=== PATIENT | female | born 1970 | race Caucasian/White ===

== ENCOUNTER 2016-06-14 12:54 | Inpatient (IN) | payer MEDICAID, OTHER ==
[~2016-06-14] VITALS: Ht 157.5 cm; Wt 72.7 kg
[~2016-06-14 12:54] MED LIST: CALC0.5C6 PO; CITRTAB7 PO; D3 U5000 PO; LEVO.125 PO; MAGN400C2 PO
[2016-06-14 12:55] VITALS: BP 178/117; PULSE 96; RESP 20; TEMP 97.8; O2SAT 97
--- NOTE | 2016-06-14 15:43 | PD ---
HPI Chief Complaint: Abnormal Results Time Seen by Provider: 15:43 Travel History International Travel<30 days: No Contact w/Intl Traveler<30days: No Traveled to known affect area: No History of Present Illness HPI 45-year-old female with history of hypocalcemia in the past, thyroidectomy in 2011, presents to emergency department today for evaluation of possible hypocalcemia. Patient states that she has had diarrhea since yesterday. She has been "tingling from her head to her toes"with muscle spasms. Patient states that this has happened to her in the past. She has been taking her calcium supplements daily but things after heard since the diarrhea that it has gone too low. Denies a chest tightness. No difficulty breathing. No hematemesis or medicated. No urinary symptoms. No other symptoms to report. PFSH Past Medical History Hx Anticoagulant Therapy: No Asthma: No Autoimmune Disease: No Blood Disorders: No Anxiety: No Depression: No Heart Rhythm Problems: No Cancer: Yes (thyroid) Cardiovascular Problems: No High Cholesterol: No Chemotherapy: Yes Chest Pain: Yes (tight chest) Congestive Heart Failure: No COPD: No Cerebrovascular Accident: No Diabetes: No Diminished Hearing: No Endocrine: Yes Genitourinary: No Headaches: Yes Immune Disorder: No Implanted Vascular Access Dvce: Yes Insomnia: Yes Musculoskeletal: Yes (BILATERAL HIP PAIN, MOSTLY THE LEFT HIP) Neurologic: Yes Psychiatric: No Reproductive: No Respiratory: No Immunizations Current: Yes Migraines: No Radiation Therapy: Yes Seizures: No Sleep Apnea: No Thyroid Disease: Yes (THYROID CA AND GOITER) PNEUMOCCOCAL Vaccine (Year): 1 ?: Not : 3 Para: 3 Miscarriage: 0 : 0 Tubal Ligation: Yes Past Surgical History Abdominal Surgery: No Cardiac Surgery: No Endocrine Surgery: Yes (THYROIDECTOMY 2011) Eye Surgery: No Gynecologic Surgery: Yes Hysterectomy: No Oral Surgery: Yes (TEETH REMOVED) Pacemaker: No Thoracic Surgery: No Other Surgery: Yes (HEMMOROIDECTOMY) Social History Alcohol Use: No Tobacco Use: Yes (2 PPD) Substance Use: No Allergies-Medications (Allergen,Severity, Reaction): Coded Allergies: Proton Pump Inhibitors (Verified Allergy, Severe, 06/14/16) Interferes with calcium absorption. AVOID PPIs in this patient Sulfa (Verified Allergy, Severe, hives, 06/14/16) Zemplar (Verified Allergy, Severe, Rash, 06/14/16) RASH ALL OVER FACE Calcitriol (Verified Adverse Reaction, Intermediate, Diarrhea, 06/14/16) reaction is dose related, occuring at full dose, not present on low dose. Reported Meds & Prescriptions Reported Meds & Active Scripts Active Reported Synthroid (Levothyroxine Sodium) 125 Mcg Tab 125 Mcg PO DAILY Citracal + D3 Maximum (Calcium Citrate-Vitamin D) 315-250 Mg-Unit Tab 1 Tab PO BID D3 Ultra Strength (Cholecalciferol) 5,000 Unit Cap 5,000 Units PO DAILY Calcitriol 0.5 Mcg Cap 0.5 Mcg PO BID Review of Systems Except as stated in HPI: all other systems reviewed are Neg Physical Exam Narrative GENERAL: Well-nourished female patient, lying in bed in no acute distress SKIN: Warm and dry. HEAD: Atraumatic. Normocephalic. EYES: Pupils equal and round. No scleral icterus. No injection or drainage. ENT: No nasal bleeding or discharge. Mucous membranes pink and moist. NECK: Trachea midline. No JVD. CARDIOVASCULAR: Regular rate and rhythm. No murmur appreciated. RESPIRATORY: No accessory muscle use. Clear to auscultation. Breath sounds equal bilaterally. GASTROINTESTINAL: Abdomen soft, non-tender, nondistended. Hepatic and splenic margins not palpable. MUSCULOSKELETAL: No obvious deformities. No clubbing. No cyanosis. No edema. NEUROLOGICAL: Awake and alert. No obvious cranial nerve deficits. Motor grossly within normal limits. Normal speech. PSYCHIATRIC: Appropriate mood and affect; insight and judgment normal. Data Data Last Documented VS Vital Signs Date Time Temp Pulse Resp B/P Pulse Ox O2 Delivery O2 Flow Rate FiO2 06/14/16 15:49 18 96 Room Air 06/14/16 15:44 75 06/14/16 12:55 97.8 178/117 Orders Complete Blood Count With Diff (06/14/16 15:44) Comprehensive Metabolic Panel (06/14/16 15:44) Iv Access Insert/Monitor (06/14/16 15:44) Ecg Monitoring (06/14/16 15:44) Oximetry (06/14/16 15:44) Sodium Chloride 0.9% Flush (Ns Flush) (06/14/16 15:45) Electrocardiogram (06/14/16 ) Calcium Chloride Inj (Calcium Chloride I (06/14/16 17:00) Calcium Carbonate Chew (Tums Chew) (06/14/16 17:00) Admit Order (Ed Use Only) (06/14/16 17:49) Labs Laboratory Tests Test 06/14/16 15:55 White Blood Count 11.2 TH/MM3 Red Blood Count 4.81 MIL/MM3 Hemoglobin 14.7 GM/DL Hematocrit 43.6 % Mean Corpuscular Volume 90.5 FL Mean Corpuscular Hemoglobin 30.6 PG Mean Corpuscular Hemoglobin 33.8 % Concent Red Cell Distribution Width 13.0 % Platelet Count 265 TH/MM3 Mean Platelet Volume 10.3 FL Neutrophils (%) (Auto) 63.4 % Lymphocytes (%) (Auto) 29.4 % Monocytes (%) (Auto) 5.6 % Eosinophils (%) (Auto) 0.9 % Basophils (%) (Auto) 0.7 % Neutrophils # (Auto) 7.1 TH/MM3 Lymphocytes # (Auto) 3.3 TH/MM3 Monocytes # (Auto) 0.6 TH/MM3 Eosinophils # (Auto) 0.1 TH/MM3 Basophils # (Auto) 0.1 TH/MM3 CBC Comment DIFF FINAL Differential Comment Sodium Level 141 MEQ/L Potassium Level 3.7 MEQ/L Chloride Level 105 MEQ/L Carbon Dioxide Level 27.8 MEQ/L Anion Gap 8 MEQ/L Blood Urea Nitrogen 9 MG/DL Creatinine 1.01 MG/DL Estimat Glomerular Filtration 59 ML/MIN Rate Random Glucose 106 MG/DL Calcium Level 5.5 MG/DL Protein Corrected Calcium 5.5 MG/DL Total Bilirubin 0.3 MG/DL Aspartate Amino Transf 23 U/L (AST/SGOT) Alanine Aminotransferase 19 U/L (ALT/SGPT) Alkaline Phosphatase 54 U/L Total Protein 7.2 GM/DL Albumin 3.9 GM/DL MDM Medical Decision Making Medical Screen Exam Complete: Yes Emergency Medical Condition: Yes Medical Record Reviewed: Yes Differential Diagnosis Electrolyte abnormality versus gastroenteritis versus colitis Narrative Course 45 year-old female presents to the emergency department for evaluation. Patient appears without distress. She is slightly tachycardic initially but normalizes after being in the room. CBC is without acute concern. CMP is with protein corrected calcium of 5.5. Patient is given 1 g calcium gluconate and 500 mg calcium carbonate chew. I discussed the patient with my attending physician Dr. Michelle. Patient will be admitted observation to the resident service. Diagnosis Primary Impression: Hypocalcemia Admitting Information Admitting Physician Requests: Observation Condition: Stable Mary Lou Ruvalcaba Jun 14, 2016 15:43
[2016-06-14] MEDS ORDERED: SODIUM CHLORIDE 0.9% FLUSH 10 ML FLUSH IV FLUSH PRN (15:45)
[2016-06-14 15:49] VITALS: RESP 18; O2SAT 96
[2016-06-14 16:22] LABS: AUTOMATED NEUTROPHIL # 7.1 TH/MM3 (1.8-7.7); BASOPHIL # 0.1 TH/MM3 (0-0.2); BASOPHIL % 0.7 % (0.0-2.0); EOSINOPHIL # 0.1 TH/MM3 (0-0.4); EOSINOPHIL % 0.9 % (0.0-4.0); HEMATOCRIT 43.6 % (35.0-46.0); HEMO FLAGS DIFF FINAL; LYMPH % 29.4 % (9.0-44.0); LYMPHOCYTE # 3.3 TH/MM3 (1.0-4.8); MEAN CELL VOLUME 90.5 FL (80.0-100.0); MEAN CORPUSCULAR HEMOGLOBIN 30.6 PG (27.0-34.0); MEAN CORPUSCULAR HGB CONC 33.8 % (32.0-36.0); MONO % 5.6 % (0.0-8.0); NEUT % 63.4 % (16.0-70.0); PLATELET COUNT 265 TH/MM3 (150-450); RED BLOOD COUNT 4.81 MIL/MM3 (4.00-5.30); WHITE BLOOD COUNT 11.2 TH/MM3 (4.0-11.0)
[2016-06-14 16:46] LABS: BICARBONATE 27.8 MEQ/L (21.0-32.0); TOTAL BILIRUBIN ADULT 0.3 MG/DL (0.2-1.0)
[2016-06-14 16:48] LABS: POTASSIUM 3.7 MEQ/L (3.5-5.1)
[2016-06-14 16:51] LABS: CALCIUM-PROTEIN CORRECTED 5.5 MG/DL (8.5-10.1)
[2016-06-14] MEDS ORDERED: CALCIUM CHLORIDE 10% SOLN 1 GRAM/10 ML SYR IV PUSH ONE (17:00)
[2016-06-14] MEDS ORDERED: CALCIUM CARBONATE 500 MG CHEWABLE TAB CHEW ONE (17:00)
--- NOTE | 2016-06-14 17:53 | HHI.HP ---
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 Parathyroid glands were not removed per report but patient has had hypoparathyroidism since her thyroidectomy. Today she reports "tetany". She has "drawing up" of her muscles including her throat since yesterday morning. She is tingling from head to toe, "hands and feet feel asleep" and the feeling is constant. The symptoms come and go, no worse today than yesterday. She knew her calcium must have been low due to her symptomatology and decided to come in. At home she takes twelve 600mg tablets of calcium daily. Last time in hospital was in January 2016; she was given IV calcium 1g and 500mg PO calcium (as well as home medications) and was discharged next day. She reports decreased adherence with her home medications, noting she has only taken her calcium with vitD along with magnesium. Ran out of synthroid one week ago. She denies shortness of breath, chest pain, dysphagia. She does have numbness of her fingers and toes bilaterally and facial twitches left worse than right. (Mariajose Carbajal MD R1) Review of Systems Constitutional: DENIES: Fever, Chills, Change in appetite Endocrine: DENIES: Abnorml menstrual pattern, Polydipsia, Polyuria Eyes: DENIES: Blurred vision, Vision loss Ears, nose, mouth, throat: COMPLAINS OF: Tinnitus ("a little bit" on right), DENIES: Vertigo Respiratory: DENIES: Cough, Wheezing, Shortness of breath Cardiovascular: DENIES: Chest pain, Palpitations Gastrointestinal: DENIES: Abdominal pain, Black stools, Bloody stools, Constipation, Diarrhea, Nausea, Vomiting Genitourinary: DENIES: Dysuria Musculoskeletal: COMPLAINS OF: Joint pain (hip, chronic) Neurologic: COMPLAINS OF: Paresthesias, DENIES: Abnormal gait, Headache, Seizures, Tremor, Poor Balance Psychiatric: DENIES: Anxiety, Depression (Mariajose Carbajal MD R1) Past Family Social History Past Medical History History of goiter (?cancer) Hypothyroidism Hypoparathyroidism Past Surgical History Thyroidectomy Hemorrhoidectomy Bilateral tubal ligation Reported Medications Reported Meds & Active Scripts Active Reported Synthroid (Levothyroxine Sodium) 125 Mcg Tab 125 Mcg PO DAILY Citracal + D3 Maximum (Calcium Citrate-Vitamin D) 315-250 Mg-Unit Tab 1 Tab PO BID D3 Ultra Strength (Cholecalciferol) 5,000 Unit Cap 5,000 Units PO DAILY Calcitriol 0.5 Mcg Cap 0.5 Mcg PO BID (Mariajose Carbajal MD R1) Allergies: Coded Allergies: Proton Pump Inhibitors (Verified Allergy, Severe, 06/14/16) Interferes with calcium absorption. AVOID PPIs in this patient Sulfa (Verified Allergy, Severe, hives, 06/14/16) Zemplar (Verified Allergy, Severe, Rash, 06/14/16) RASH ALL OVER FACE Calcitriol (Verified Adverse Reaction, Intermediate, Diarrhea, 06/14/16) reaction is dose related, occuring at full dose, not present on low dose. Active Ordered Medications Inpatient Medications Calcitriol (Rocaltrol) 0.5 mcg BID PO ; Start 06/14/16 at 21:00 Calcium Carbonate 500 mg 500 mg ONCE ONCE CHEW ; Start 06/14/16 at 17:00; Stop 06/14/16 at 17:01; Status DC Calcium Chloride (Calcium Chloride Inj) 1 gm ONCE ONCE IV PUSH ; Start at 17:00; Stop 06/14/16 at 17:56; Status DC Calcium Gluconate/ Dextrose (Calcium Gluconate Inj/D5W 100 ml Inj) 110 ml @ 110 mls/hr ONCE ONCE IV Last administered on 06/14/16t 18:03; Start 06/14/16 at 18:00; Stop 06/14/16 at 18:59 Calcium/Vitamin D 500 mg 500 mg BID PO CA; Start 06/14/16 at 21:00 Cholecalciferol (Vitamin D3) 5,000 units DAILY PO ; Start 06/15/16 at 09:00 Enoxaparin Sodium (Lovenox Inj) 40 mg Q24H SQ ; Start 06/14/16 at 20:00 Levothyroxine Sodium (Synthroid) 125 mcg DAILY@06 PO ; Start 06/14/16 at 18:00 Naloxone HCl (Narcan Inj) 0.4 mg UNSCH PRN IV SEE LABEL COMMENTS; Start at 18:30 Sodium Chloride (NS 1000 ml Inj) 1,000 ml @ 100 mls/hr Q10H IV ; Start at 18:19 Sodium Chloride (NS Flush) 2 ml UNSCH PRN IV FLUSH FLUSH AFTER USING IV ACCESS ; Start 06/14/16 at 15:45 Temazepam (Restoril) 15 mg HS PRN PO INSOMNIA; Start 06/14/16 at 18:30 Family History Mom when she was a baby from thyroid cancer Dad with hypertension Social History Cigarette: 1/2 ppd x one year, 1 ppd for 6 years Alcohol: None Illicit: Denies 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 (Mariajose Carbajal MD R1) Physical Exam Vital Signs Vital Signs Date Time Temp Pulse Resp B/P Pulse Ox O2 Delivery O2 Flow Rate FiO2 06/14/16 15:49 18 96 Room Air 06/14/16 15:44 75 18 96 Room Air 06/14/16 12:55 97.8 96 20 178/117 97 Room Air Physical Exam GENERAL: This is a well-nourished, well-developed female in no apparent distress. Daughter at bedside. ENDO: Chvostek's sign positive L>R, Trousseau sign negative, no thyroid masses noted SKIN: No rashes, ecchymoses or lesions. HEAD: Atraumatic. Normocephalic. No temporal or scalp tenderness. EYES: Pupils equal round and reactive. Extraocular motions intact. No scleral icterus. No injection or drainage. ENT: Nose without bleeding, purulent drainage or septal hematoma. Throat without erythema, tonsillar hypertrophy or exudate. NECK: Trachea midline. No JVD or lymphadenopathy. Supple, nontender, no meningeal signs. CARDIOVASCULAR: Regular rate and rhythm without murmurs, gallops, or rubs. RESPIRATORY: Clear to auscultation. Breath sounds equal bilaterally. No wheezes , rales, or rhonchi. GASTROINTESTINAL: Abdomen soft, non-tender, nondistended. No hepato-splenomegaly , or palpable masses. MUSCULOSKELETAL: Mild resistance on passive ROM of UE and LE. Extremities without clubbing, cyanosis, or edema. No joint tenderness, effusion, or edema noted. No calf tenderness. NEUROLOGICAL: Awake and alert. Cranial nerves II through XII intact. Motor and sensory grossly within normal limits. Five out of 5 muscle strength in all muscle groups. Normal speech. Laboratory Laboratory Tests Test 06/14/16 15:55 White Blood Count 11.2 Red Blood Count 4.81 Hemoglobin 14.7 Hematocrit 43.6 Mean Corpuscular Volume 90.5 Mean Corpuscular Hemoglobin 30.6 Mean Corpuscular Hemoglobin 33.8 Concent Red Cell Distribution Width 13.0 Platelet Count 265 Mean Platelet Volume 10.3 Neutrophils (%) (Auto) 63.4 Lymphocytes (%) (Auto) 29.4 Monocytes (%) (Auto) 5.6 Eosinophils (%) (Auto) 0.9 Basophils (%) (Auto) 0.7 Neutrophils # (Auto) 7.1 Lymphocytes # (Auto) 3.3 Monocytes # (Auto) 0.6 Eosinophils # (Auto) 0.1 Basophils # (Auto) 0.1 CBC Comment DIFF FINAL Differential Comment Sodium Level 141 Potassium Level 3.7 Chloride Level 105 Carbon Dioxide Level 27.8 Anion Gap 8 Blood Urea Nitrogen 9 Creatinine 1.01 Estimat Glomerular Filtration 59 Rate Random Glucose 106 Calcium Level 5.5 Protein Corrected Calcium 5.5 Total Bilirubin 0.3 Aspartate Amino Transf 23 (AST/SGOT) Alanine Aminotransferase 19 (ALT/SGPT) Alkaline Phosphatase 54 Total Protein 7.2 Albumin 3.9 (Mariajose Carbajal MD R1) Result Diagram: 06/14/16 1555 06/14/16 1555 Assessment and Plan Assessment and Plan 45 year old female with chronic hypocalcemia related to thyroidectomy/ hypoparathyroidism presents with symptoms strongly suggestive of hypocalcemia. She is admitted for further work-up and correction of electrolyte abnormality. Code Status DNR - discussed with patient in detail with daughter at bedside; declines chest compressions, intubation, shock, or medications if her heart were to stop functioning or if she were to require respiratory support Discussed Condition With SDW Dr. Kurtis Ramirez (Mariajose Carbajal MD R1) Attending Attestation THIS CASE WAS DISCUSSED WITH THE RESIDENT PHYSICIANS. I HAVE REVIEWED THE RECORD AND AGREE WITH THE ABOVE NOTE AND PLAN OF CARE WAS DISCUSSED. I HAVE AUTHORIZED THE ORDER FOR ADMISSION TO AN IN-PATIENT STATUS. (Yohan Palmer MD) Problem List: (1) Hypocalcemia Status: Acute Plan: Chronic exacerbation. [place] reported and patient has positive checkoff sign. Calcium is 5.5, corrected. She is status post calcium carbonate 500 mg and 1 g IV calcium -EKG notable for QT prolongation of 490, no evidence of prolonged QRS or ischemic changes -Troponin ordered, is normal -Trend calcium at 10pm and in AM -Trend EKG -Check TSH, vit D, PTH, phosphate, Mg (2) Hypothyroidism Status: Chronic Plan: Patient has not taken her home dose Synthroid for one week. Restart as inpatient. TSH pending. -manager in training to assess with PCP establishing (3) Hypoparathyroidism Status: Chronic Plan: Related to thyroidectomy in approximately 2010. Adherence to medical management is questionable. -Management as above (4) Fluids/Electrolytes/Nutrition/Prophylaxis Status: Acute Plan: Fluids: NS @ 100ml/hr Electrolytes: monitor and replete as needed, HypoCa2+ Nutrition: regular diet DVT Prophylaxis: Lovenox 40mg subQ q24hr GI Prophylaxis: PPI not indicated, would reduce absorption of calcium (Mariajose Carbajal MD R1) Mariajose Carbajal MD R1 Jun 14, 2016 17:53 Yohan Palmer MD Jun 15, 2016 12:10
[2016-06-14] MEDS ORDERED: CALCIUM GLUCONATE INJ 1 GM in DEXTROSE 5% IN WATER 100ML INJ 100 ML IV ONE ×2 (18:00)
[2016-06-14] MEDS ORDERED: NALOXONE HCL 0.4 MG/ML AMP IV PRN (18:30)
[2016-06-14 19:07] VITALS: BP 126/61; PULSE 75; RESP 18; O2SAT 95
[2016-06-14] MEDS ORDERED: ENALAPRILAT 1.25 MG/ML VIAL IV PRN (19:30)
[2016-06-14] MEDS: LEVOTHYROXINE SODIUM 125 MCG TAB PO SCH (19:35)
[2016-06-14] MEDS: SODIUM CHLOR 0.9% 1000 ML INJ 1,000 ML IV SCH (19:35)
[2016-06-14 19:39] VITALS: BP 126/61; PULSE 71; RESP 18; O2SAT 99
[2016-06-14] MEDS: ENOXAPARIN SODIUM 40 MG/0.4 ML SYRINGE SQ SCH (20:00)
[2016-06-14 21:35] VITALS: BP 143/60; PULSE 62; RESP 18; TEMP 98.3; O2SAT 94
[2016-06-14] MEDS: CALCITRIOL 0.25 MCG CAP PO SCH (22:08)
[2016-06-14] MEDS: CALCIUM/VITAMIN D 250 MG/125 U TAB PO SCH (22:08)
[2016-06-15] MEDS: TEMAZEPAM 15 MG CAP PO PRN ×2 (00:20→23:52)
[2016-06-15 02:14] LABS: CALCIUM-PROTEIN CORRECTED 6.2 MG/DL (8.5-10.1)
[2016-06-15] MEDS ORDERED: CALCIUM GLUCONATE INJ 1 GM in SODIUM CHLORIDE 0.9% INJ 100 ML IV ONE ×3 (03:15→18:00)
[2016-06-15] MEDS: SODIUM CHLOR 0.9% 1000 ML INJ 1,000 ML IV SCH (04:19)
[2016-06-15 04:23] VITALS: BP 130/60; PULSE 65; RESP 18; TEMP 97.8; O2SAT 95
[2016-06-15] MEDS: LEVOTHYROXINE SODIUM 125 MCG TAB PO SCH (05:49)
[2016-06-15 08:00] VITALS: BP 104/51; PULSE 52; PULSE 53; RESP 18; TEMP 97.6; O2SAT 94
[2016-06-15 08:04] LABS: BASOPHIL % 0.5 % (0.0-2.0); EOSINOPHIL # 0.1 TH/MM3 (0-0.4); EOSINOPHIL % 1.5 % (0.0-4.0); HEMATOCRIT 40.8 % (35.0-46.0); HEMO FLAGS DIFF FINAL; LYMPH % 38.7 % (9.0-44.0); LYMPHOCYTE # 3.1 TH/MM3 (1.0-4.8); MEAN CELL VOLUME 90.9 FL (80.0-100.0); MEAN CORPUSCULAR HEMOGLOBIN 31.2 PG (27.0-34.0); MEAN CORPUSCULAR HGB CONC 34.4 % (32.0-36.0); MONO % 9.1 % (0.0-8.0); NEUT % 50.2 % (16.0-70.0); PLATELET COUNT 229 TH/MM3 (150-450); RED BLOOD COUNT 4.49 MIL/MM3 (4.00-5.30); RED CELL DISTRIBUTION WIDTH 12.9 % (11.6-17.2)
[2016-06-15 08:12] LABS: POTASSIUM 3.6 MEQ/L (3.5-5.1)
[2016-06-15 08:45] LABS: BICARBONATE 28.8 MEQ/L (21.0-32.0)
[2016-06-15] MEDS: CHOLECALCIFEROL (VIT D3) 5000 UNIT CAP PO SCH (09:22)
[2016-06-15] MEDS: CALCIUM/VITAMIN D 250 MG/125 U TAB PO SCH ×2 (09:22→20:54)
[2016-06-15] MEDS: CALCITRIOL 0.25 MCG CAP PO SCH ×2 (09:23→20:54)
[2016-06-15] MEDS ORDERED: CALCIUM GLUCONATE 10% 1 GM/10 ML VIAL IV PUSH ONE (09:45)
[2016-06-15] MEDS ORDERED: CHOLECALCIFEROL (VIT D3) 5000 UNIT CAP PO SCH (09:52)
[2016-06-15 12:00] VITALS: BP 130/63; PULSE 54; RESP 18; TEMP 98.1; O2SAT 96
--- NOTE | 2016-06-15 12:10 | HHI.FPPN ---
Subjective Remarks No acute events overnight and patient feels relatively well this morning. She still has a little bit of "tingling" in her fingertips but otherwise states that she feels well. She denies any perioral paresthesias or muscle twitching, she denies any chest pain or shortness of breath, she denies any difficulty swallowing, she denies any peripheral paresthesias other than the fingers listed as above. She was able to eat dinner but has not eaten breakfast yet this morning. In summary this is a 45-year-old female with a known history of hypocalcemia due to thyroidectomy done 4 years ago. She presents to the emergency department with symptoms of muscle cramping and tightness as well as tingling from head to toe. She states that this is a constant feeling and that this is how she feels that her calcium is low. She also endorses diarrhea over the last 2-3 days without any abdominal pain or cramping. She is on calcium supplementation at home with calcium citrate 600 mg tablets, she will commonly take 10-15 of these a day. Past Medical History History of goiter (?cancer) Hypothyroidism Hypoparathyroidism Past Surgical History Thyroidectomy Hemorrhoidectomy Bilateral tubal ligation Reported Medications Reported Synthroid (Levothyroxine Sodium) 125 Mcg Tab 125 Mcg PO DAILY Citracal + D3 Maximum (Calcium Citrate-Vitamin D) 315-250 Mg-Unit Tab 1 Tab PO BID D3 Ultra Strength (Cholecalciferol) 5,000 Unit Cap 5,000 Units PO DAILY Calcitriol 0.5 Mcg Cap 0.5 Mcg PO BID Family History Mom when she was a baby from thyroid cancer Dad with hypertension Social History Cigarette: 1/2 ppd x one year, 1 ppd for 6 years Alcohol: None Illicit: Denies 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 Objective Vitals Vital Signs Date Time Temp Pulse Resp B/P Pulse Ox O2 Delivery O2 Flow Rate FiO2 06/15/16 08:00 97.6 52 18 104/51 94 06/15/16 04:23 97.8 65 18 130/60 95 06/14/16 23:53 Room Air 06/14/16 21:35 98.3 62 18 143/60 94 06/14/16 19:39 71 18 126/61 99 Room Air 06/14/16 19:07 75 18 126/61 95 06/14/16 15:49 18 96 Room Air 06/14/16 15:44 75 18 96 Room Air 06/14/16 12:55 97.8 96 20 178/117 97 Room Air I/O 06/14/16 06/14/16 06/14/16 06/15/16 06/15/16 06/15/16 07:00 15:00 23:00 07:00 15:00 23:00 Intake Total 480 ml Output Total 200 ml Balance 280 ml Intake Oral 480 ml Output Urine Total 200 ml # Bowel Movements 0 Result Diagram: 06/15/16 0645 06/15/16 0645 Objective Remarks GENERAL: Happy and healthy-appearing female, lying in bed in no obvious distress ENDO: Negative Trousseau's sign, negative Chvostek sign SKIN: No rashes, ecchymoses or lesions. HEAD: Atraumatic. Normocephalic. EYES: Pupils equal round and reactive. Extraocular motions intact. NECK: Trachea midline. No obvious goiter CARDIOVASCULAR: Regular rate and rhythm without murmurs, gallops, or rubs. RESPIRATORY: Clear to auscultation. Breath sounds equal bilaterally. No wheezes , rales, or rhonchi. MUSCULOSKELETAL: Full range of motion and movement within normal limits of extremities NEUROLOGICAL: Awake and alert. A/P Assessment and Plan 45 year old female with chronic hypocalcemia related to thyroidectomy/ hypoparathyroidism presents with symptoms strongly suggestive of hypocalcemia. She is admitted for further work-up and correction of electrolyte abnormality. Problem List: (1) Hypocalcemia Status: Acute Plan: Hypocalcemia continues this morning with a calcium of 6.7 (protein corrected calcium of 7.0) So far she has received: Calcium Gluconate 1 g IV 2 Os-CalD 500 mg by mouth 2 Calcitriol 0.5 mcg 2 Cholecalciferol 5000 units 1 Calcium carbonate (Tums) 500 mg by mouth 1 Today we will increase calcium carbonate to 1000 mg by mouth 3 times a day - Continue calcitriol 0.5 g twice a day - Continue cholecalciferol 5000 units daily Check calcium later today Vitamin D level pending Magnesium within normal limits at 1.8 TSH within normal limits at 3.2 (2) Hypothyroidism Status: Chronic Plan: Restart home levothyroxine -physician relations manager to assess with PCP establishing (3) Hypoparathyroidism Status: Chronic Plan: Related to thyroidectomy in approximately 2010. Adherence to medical management is questionable. -Management as above (4) Fluids/Electrolytes/Nutrition/Prophylaxis Status: Acute Plan: Fluids: IV fluids discontinued Electrolytes: monitor and replete as needed, Nutrition: regular diet DVT Prophylaxis: Lovenox 40mg subQ q24hr GI Prophylaxis: PPI not indicated, would reduce absorption of calcium Yohan Palmer MD Jun 15, 2016 12:09
--- NOTE | 2016-06-15 13:27 | EKG ---
Date Performed: 06/14/2016 Time Performed: 17:58:40 PTAGE: 45 years EKG: Sinus rhythm PROLONGED QT INTERVAL ABNORMAL ECG PREVIOUS TRACING : 02/01/2016 09.10 Compared to prior tracing no significant change DOCTOR: Rao Carbajal Interpretating Date/Time 06/15/2016 13:27:06
[2016-06-15 14:55] LABS: BICARBONATE 26.4 MEQ/L (21.0-32.0); POTASSIUM 3.4 MEQ/L (3.5-5.1)
[2016-06-15 15:09] LABS: CALCIUM-PROTEIN CORRECTED 6.8 MG/DL (8.5-10.1)
[2016-06-15] MEDS: CALCIUM CARBONATE 1.25 GM (CA 500 MG) TAB PO SCH ×2 (15:10→19:00)
[2016-06-15 16:00] VITALS: BP 120/64; PULSE 58; RESP 18; TEMP 98.1; O2SAT 95
[2016-06-15 19:18] VITALS: BP 146/65; PULSE 55; RESP 16; TEMP 98.4; O2SAT 93
[2016-06-15] MEDS: ENOXAPARIN SODIUM 40 MG/0.4 ML SYRINGE SQ SCH (20:53)
[2016-06-15 23:14] VITALS: BP 174/85; PULSE 60; RESP 16; TEMP 97.9; O2SAT 93
[2016-06-15 23:31] LABS: BICARBONATE 27.9 MEQ/L (21.0-32.0); MAGNESIUM 1.7 MG/DL (1.5-2.5); POTASSIUM 3.6 MEQ/L (3.5-5.1)
[2016-06-16 03:20] VITALS: BP 132/85; PULSE 84; RESP 16; TEMP 98.1; O2SAT 93
[2016-06-16] MEDS: CALCIUM CARBONATE 1.25 GM (CA 500 MG) TAB PO SCH ×2 (03:43→11:00)
[2016-06-16] MEDS: LEVOTHYROXINE SODIUM 125 MCG TAB PO SCH (06:22)
[2016-06-16 08:00] VITALS: BP 159/77; PULSE 65; RESP 20; TEMP 98.3; O2SAT 97
[2016-06-16 08:05] VITALS: PULSE 69
--- NOTE | 2016-06-16 08:10 | HHI.FPPN ---
Subjective Remarks Patient was seen and examined this morning. She overall feels better, still endorsing a "heavy chest" but this is better. She has no fevers, chills, nausea , vomiting. Walking around room without difficulty. Normal bowel and bladder function. Ready to go home. She does not desire assistance with establishing with a PCP. (Mariajose Carbajal MD R1) Objective Vitals Vital Signs Date Time Temp Pulse Resp B/P Pulse Ox O2 Delivery O2 Flow Rate FiO2 06/16/16 03:20 98.1 84 16 132/85 93 06/15/16 23:14 97.9 60 16 174/85 93 06/15/16 20:00 Room Air 06/15/16 19:18 98.4 55 16 146/65 93 06/15/16 16:00 98.1 58 18 120/64 95 06/15/16 12:00 98.1 54 18 130/63 96 I/O 06/15/16 06/15/16 06/15/16 06/16/16 06/16/16 06/16/16 07:00 15:00 23:00 07:00 15:00 23:00 Intake Total 480 ml 240 ml 480 ml 240 ml Output Total 200 ml 200 ml 800 ml 200 ml Balance 280 ml 40 ml -320 ml 40 ml Intake Oral 480 ml 240 ml 480 ml 240 ml Output Urine Total 200 ml 200 ml 800 ml 200 ml # Bowel Movements 0 0 0 (Mariajose Carbajal MD R1) Result Diagram: 06/15/16 0645 06/15/167 Objective Remarks GENERAL: Well appearing female patient resting comfortably ENDO: Negative Trousseau's sign, negative Chvostek sign SKIN: No rashes, ecchymoses or lesions. HEAD: Atraumatic. Normocephalic. EYES: Pupils equal round and reactive. Extraocular motions intact. NECK: Trachea midline. No obvious goiter CARDIOVASCULAR: Regular rate and rhythm without murmurs, gallops, or rubs. RESPIRATORY: Clear to auscultation. Breath sounds equal bilaterally. No wheezes , rales, or rhonchi. MUSCULOSKELETAL: Full range of motion and movement within normal limits of extremities NEUROLOGICAL: Awake and alert. Normal speech. PSYCH: cheerful, happy. appropriate mood and affect. Medications and IVs Inpatient Medications Calcitriol (Rocaltrol) 0.5 mcg BID PO Last administered on 06/15/16 20:54; Start 06/14/16 at 21:00 Calcium Carbonate (Oscal) 1,000 mg Q8H PO Last administered on 06/16/16 03:43 ; Start 06/15/16 at 11:00 Calcium Carbonate 500 mg 500 mg ONCE ONCE CHEW Last administered on 06/14/16 18:55; Start 06/14/16 at 17:00; Stop 06/14/16 at 17:01; Status DC Calcium Chloride (Calcium Chloride Inj) 1 gm ONCE ONCE IV PUSH ; Start at 17:00; Stop 06/14/16 at 17:56; Status DC Calcium Gluconate 1 gm/Sodium Chloride 110 ml @ 110 mls/hr ONCE ONCE IV Last administered on 06/15/16 15:10; Start 06/15/16 at 12:00; Stop 06/15/16 at 12:59 ; Status DC Calcium Gluconate/ Dextrose (Calcium Gluconate Inj/D5W 100 ml Inj) 110 ml @ 110 mls/hr ONCE ONCE IV Last administered on 06/14/16 18:03; Start 06/14/16 at 18:00; Stop 06/14/16 at 18:59; Status DC Calcium Gluconate/ Sodium Chloride (Calcium Gluconate Inj/NS Inj) 110 ml @ 110 mls/hr ONCE ONCE IV Last administered on 06/15/16 19:00; Start 06/15/16 at 18 :00; Stop 06/15/16 at 18:59; Status DC Calcium/Vitamin D 500 mg 500 mg BID PO CA Last administered on 06/15/16 20:54; Start 06/14/16 at 21:00 Cholecalciferol (Vitamin D3) 5,000 units DAILY PO Last administered on 09:22; Start 06/15/16 at 09:00 Cholecalciferol 5000 units 5,000 units DAILY PO ; Start 06/15/16 at 09:52; Stop 06/15/16 at 10:17; Status DC Enalaprilat (Vasotec Inj) 1.25 mg Q6H PRN IV SBP> OR = 180, DBP> OR = 100; Start 06/14/16 at 19:30 Enoxaparin Sodium (Lovenox Inj) 40 mg Q24H SQ Last administered on 06/15/16 20 :53; Start 06/14/16 at 20:00 Levothyroxine Sodium (Synthroid) 125 mcg DAILY@06 PO Last administered on 06:22; Start 06/14/16 at 18:00 Naloxone HCl (Narcan Inj) 0.4 mg UNSCH PRN IV SEE LABEL COMMENTS; Start at 18:30 Sodium Chloride (NS 1000 ml Inj) 1,000 ml @ 100 mls/hr Q10H IV Last administered on 06/15/16 04:19; Start 06/14/16 at 18:19; Stop 06/15/16 at 09:45 ; Status DC Sodium Chloride (NS Flush) 2 ml UNSCH PRN IV FLUSH FLUSH AFTER USING IV ACCESS ; Start 06/14/16 at 15:45 Temazepam (Restoril) 15 mg HS PRN PO INSOMNIA Last administered on 06/15/16 23 :52; Start 06/14/16 at 18:30 (Mariajose Carbajal MD R1) Urinary Catheter: No (Mariajose Carbajal MD R1) Vascular Central Line Catheter: No (Mariajose Carbajal MD R1) A/P Assessment and Plan 45 year old female with chronic hypocalcemia related to thyroidectomy/ hypoparathyroidism presents with symptoms strongly suggestive of symptomatic hypocalcemia. She is admitted for further work-up and correction of electrolyte abnormality. Discharge Planning Likely to discharge today given normalized calcium level and improved symptoms. She should follow up with a PCP within one-two weeks of discharge. CM will discuss with patient prior to discharge. (Mariajose Carbajal MD R1) Attending Attestation Pt. examined and case discussed with resident physicians I have read the above note and agree with the assessment/plan as discussed with me I was involved in all medical decision making for this patient Yohan Palmer MD (Yohan Palmer MD) Problem List: (1) Hypocalcemia Status: Resolved Plan: Hypocalcemia resolved, 6.7-----> 8.8 last night. BMP pending this morning , will discharge if stable. She will continue Calcium carbonate at dose listed below at home Discharge regimen: Continue Calcium carbonate 1500 mg by mouth 3 times a day Continue calcitriol 0.5 g twice a day Continue cholecalciferol 5000 units daily Follow-up within one week for repeat BMP as outpatient Calcium Repletion this Hospital Stay: Calcium Gluconate 1 g IV 4 Os-CalD 500 mg by mouth 3 Calcitriol 0.5 mcg 3 Cholecalciferol 5000 units 1 (2nd dose due this morning) Calcium carbonate (Tums) 500 mg by mouth 1 Calcium carbonate increased to 1000 mg by mouth 3 times a day on 06/15/16 BMP 06/15/16 then discharge if stable Vitamin D level pending Magnesium within normal limits at 1.8 TSH within normal limits at 3.2 (2) Hypothyroidism Status: Chronic Plan: 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 Adherence to medical management is questionable. -Management as above (4) Fluids/Electrolytes/Nutrition/Prophylaxis Status: Acute Plan: Fluids: IV fluids discontinued Electrolytes: monitor and replete as needed, Nutrition: regular diet DVT Prophylaxis: Lovenox 40mg subQ q24hr GI Prophylaxis: PPI not indicated, would reduce absorption of calcium dw Dr. Palmer (Mariajose Carbajal MD R1) Problem Qualifiers (1) Hypothyroidism: Qualified Code: E89.0 - Postoperative hypothyroidism (2) Hypoparathyroidism: Qualified Code: E20.0 - Idiopathic hypoparathyroidism Mariajose Carbajal MD R1 Jun 16, 2016 08:10 Yohan Palmer MD Jun 16, 2016 18:10
[2016-06-16] MEDS ORDERED: CALC0.5C6 PO (08:36)
[2016-06-16] MEDS ORDERED: D3 U5000 PO (08:36)
[2016-06-16] MEDS ORDERED: LEVO.125 PO (08:36)
--- NOTE | 2016-06-16 08:37 | HHI.DCPOC ---
Discharge Care Plan Diagnosis: (1) Hypocalcemia (2) Hypoparathyroidism (3) Hypothyroidism Goals to Promote Your Health *Prevent worsening of your condition and complications *Maintain your health at the optimal level Directions to Meet Your Goals Take your medications as prescribed Follow your dietary instruction Follow activity as directed Establish with a primary care physician Keep your appointments as scheduled Take your immunizations and boosters as scheduled If your symptoms worsen call your PCP, if no PCP go to Urgent Care Center or Emergency Room Smoking is Dangerous to Your Health. Avoid second hand smoke Call the 24-hour hour crisis hotline for domestic abuse at Mariajose Carbajal MD R1 Jun 16, 2016 08:37
[2016-06-16] MEDS: CHOLECALCIFEROL (VIT D3) 5000 UNIT CAP PO SCH (09:00)
[2016-06-16] MEDS: CALCITRIOL 0.25 MCG CAP PO SCH (09:00)
[2016-06-16] MEDS: CALCIUM/VITAMIN D 250 MG/125 U TAB PO SCH (09:00)
[2016-06-16 10:44] LABS: BICARBONATE 25.8 MEQ/L (21.0-32.0)
[2016-06-16] MEDS ORDERED: TUMS500C CHEW ×2 (10:50→11:28)
[2016-06-16] MEDS ORDERED: CITRTAB7 PO (10:50)
[2016-06-16] MEDS ORDERED: PROC5TAB PO ×2 (11:24→13:22)
[2016-06-16] MEDS ORDERED: PROCHLORPERAZINE MALEATE 5 MG TAB PO ONE (11:30)
[2016-06-16 12:00] VITALS: BP 145/68; PULSE 63; RESP 20; TEMP 98.7; O2SAT 92
--- NOTE | 2016-06-16 14:07 | HHI.DS ---
Discharge Summary Admission Date Jun 14, 2016 at 18:42 Discharge Date: Jun 16, 2016 Admitting Diagnosis hypocalcemia (1) Hypocalcemia Diagnosis: Principal Plan: Hypocalcemia resolved, 6.7-----> 8.8 last night. BMP pending this morning , will discharge if stable. She will continue Calcium carbonate at dose listed below at home Discharge regimen: Continue Calcium carbonate 1500 mg by mouth 3 times a day Continue calcitriol 0.5 g twice a day Continue cholecalciferol 5000 units daily Follow-up within one week for repeat BMP as outpatient Calcium Repletion this Hospital Stay: Calcium Gluconate 1 g IV 4 Os-CalD 500 mg by mouth 3 Calcitriol 0.5 mcg 3 Cholecalciferol 5000 units 1 (2nd dose due this morning) Calcium carbonate (Tums) 500 mg by mouth 1 Calcium carbonate increased to 1000 mg by mouth 3 times a day on 06/15/16 BMP 06/15/16 then discharge if stable Vitamin D level pending Magnesium within normal limits at 1.8 TSH within normal limits at 3.2 (2) Hypothyroidism Diagnosis: Secondary Plan: 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 Adherence to medical management is questionable. 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 Parathyroid glands were not removed per report but patient has had hypoparathyroidism since her thyroidectomy. Today she reports "tetany". She has "drawing up" of her muscles including her throat since yesterday morning. She is tingling from head to toe, "hands and feet feel asleep" and the feeling is constant. The symptoms come and go, no worse today than yesterday. She knew her calcium must have been low due to her symptomatology and decided to come in. At home she takes twelve 600mg tablets of calcium daily. Last time in hospital was in January 2016; she was given IV calcium 1g and 500mg PO calcium (as well as home medications) and was discharged next day. She reports decreased adherence with her home medications, noting she has only taken her calcium with vitD along with magnesium. Ran out of synthroid one week ago. She denies shortness of breath, chest pain, dysphagia. She does have numbness of her fingers and toes bilaterally and facial twitches left worse than right. CBC/BMP: 06/15/16 0645 06/16/16 1000 Significant Findings Laboratory Tests Test 06/14/16 06/14/16 06/15/16 06/15/16 15:55 20:15 01:05 06:45 White Blood Count 11.2 TH/MM3 (4.0-11.0) Creatinine 1.01 MG/DL (0.50-1.00) Estimat Glomerular Filtration 59 ML/MIN (>89) 61 ML/MIN (>89) Rate Calcium Level 5.5 MG/DL 6.3 MG/DL 6.2 MG/DL 6.7 MG/DL (8.5-10.1) (8.5-10.1) (8.5-10.1) (8.5-10.1) Protein Corrected Calcium 5.5 MG/DL 6.2 MG/DL 7.0 MG/DL (8.5-10.1) (8.5-10.1) (8.5-10.1) Phosphorus Level 5.1 MG/DL (2.5-4.9) Troponin I LESS THAN 0.02 NG/ML (0.02-0.05) Parathyroid Hormone (Intact) LESS THAN 2.5 PG/ML (12.4-76.8) Monocytes (%) (Auto) 9.1 % (0.0-8.0) Test 06/15/16 06/15/16 06/16/16 14:03 22:37 10:00 Potassium Level 3.4 MEQ/L (3.5-5.1) Estimat Glomerular Filtration 63 ML/MIN (>89) 66 ML/MIN (>89) 68 ML/MIN (>89) Rate Random Glucose 108 MG/DL 113 MG/DL (74-106) (74-106) Calcium Level 6.7 MG/DL (8.5-10.1) Protein Corrected Calcium 6.8 MG/DL (8.5-10.1) Phosphorus Level 5.8 MG/DL (2.5-4.9) PE at Discharge GENERAL: Well appearing female patient resting comfortably ENDO: Negative Trousseau's sign, negative Chvostek sign SKIN: No rashes, ecchymoses or lesions. HEAD: Atraumatic. Normocephalic. EYES: Pupils equal round and reactive. Extraocular motions intact. NECK: Trachea midline. No obvious goiter CARDIOVASCULAR: Regular rate and rhythm without murmurs, gallops, or rubs. RESPIRATORY: Clear to auscultation. Breath sounds equal bilaterally. No wheezes , rales, or rhonchi. MUSCULOSKELETAL: Full range of motion and movement within normal limits of extremities NEUROLOGICAL: Awake and alert. Normal speech. PSYCH: cheerful, happy. appropriate mood and affect. Hospital Course Patient was admitted for inpatient management of symptomatic hypocalcemia. EKG on admission was significant for QT prolongation which did improve on repeat EKG this hospital stay. The calcium was slow to improve but did show improvement to normal range on the evening prior to discharge with stability the morning of discharge. Management as outlined in detail above, to include a total of 3 IV doses of calcium gluconate. Patient had not been taking her levothyroxine for 1 week per her report, and this was restarted as an outpatient. Patient was discharged in stable condition with prescriptions for all of her medications. She was urged to follow up with a primary care physician to get regular BMP and titrate outpatient medications to prevent return to hospital. She expressed understanding of the urgency to establish with a PCP. Pt Condition on Discharge: Stable Discharge Disposition: Discharge Home Discharge Instructions DIET: Follow Instructions for: As Tolerated, No Restrictions Activities you can perform: Regular-No Restrictions Follow up Referrals: Appointment for Follow Up - 1 Week New Orders: BASIC METABOLIC PROF - 1 Week New Medications: Calcium Carbonate (Antacid) (Tums) 500 Mg Chew 1500 MG CHEW TID HYPOCALCEMIA #270 Ref 1 TAB Prochlorperazine Maleate (Prochlorperazine Maleate) 5 Mg Tab 5 MG PO Q6H Take as needed for nausea, no more than 4 tabs per day PRN NAUSEA OR VOMITING #60 Ref 0 TAB Continued Medications: Calcitriol (Calcitriol) 0.5 Mcg Cap 0.5 MCG PO BID Calcium Supplement #60 Ref 0 CAP (This prescription has been renewed) Calcium Citrate-Vitamin D (Citracal + D3 Maximum) 315-250 Mg-Unit Tab 1 TAB PO BID Calcium Supplement #100 Ref 0 TAB (This prescription has been renewed) Cholecalciferol (D3 Ultra Strength) 5,000 Unit Cap 5000 UNITS PO DAILY Nutritional Supplement #30 Ref 0 CAP (This prescription has been renewed) Levothyroxine (Synthroid) 125 Mcg Tab 125 MCG PO DAILY Thyroid #30 Ref 0 TAB (This prescription has been renewed) Mariajose Carbajal MD R1 Jun 16, 2016 14:07
--- NOTE | 2016-06-16 16:46 | EKG ---
Date Performed: 06/15/2016 Time Performed: 17:04:21 PTAGE: 45 years EKG: SINUS BRADYCARDIA BORDERLINE ECG Compared to prior tracing no significant change PREVIOUS TRACING : 06/14/2016 17.58 DOCTOR: Vaishali Ortega Interpretating Date/Time 06/16/2016 16:44:01
== END 2016-06-16 12:23 | disposition home or self-care (01) | DRG 641 ==
LOC: NEPE 12:54 → NEDA 17:51 → OBSVTOIN 18:42 → N04B 21:35
PROVIDERS: ADMIT Family Medicine; ATTEND Family Medicine
DX: E83.51 Hypocalcemia (principal); E89.0 Postprocedural hypothyroidism; Z72.0 Tobacco use; Z66 Do not resuscitate; Z80.8 Family history of malignant neoplasm of other organs or systems
CPT/HCPCS: 80048; 80053; 82310; 82652; 83735; 83970; 84100; 84155; 84443; 84484; 85025; 93005; 99285; J0610; J1650; J7030; Q0164